=== PATIENT | female | born 1960 | race Caucasian/White ===

== ENCOUNTER → 2017-02-03 | Outpatient (CLI) | payer BC ==
[~2017-02-03] MED LIST: APAP/HYDROCODON1 TA9 PO; CLINDAMYCIN HC300 MG PO; CLONAZEPAM 1MG T1 MG PO; CYCLOBENZAPRINE10 M1 OR; DELTASONE5 MG PO; GABAPENTIN300 M1 PO; HYDROCODONE-APA1 TA1 PO; KLONOPIN1 M2 PO; LINZESS290 MCG PO; LISINOPRIL 5MG T5 MG PO; LORTAB 5/500 501 TAB PO; MEDROL 4MG. DOSE4 MG PO; MODERIBA PO; NAPROSYN 500MG500 MG PO; NORCO 325 MG-51 TAB PO; SOVALDI400 MG PO; VICODIN 7.5/501 EACH PO; ZANAFLEX4 MG NG; ZIAC 10 MG-6.251 TAB PO; ZITHROMAX Z-PA250 M2 PO
[2017-02-03 11:45] LABS: HEMOGLOBIN 14.5 g/dL (12.2-16.2); LYMPH # 2.2 K/mm3 (0.7-4.5); LYMPH % 37.6 % (10-50.0)
[2017-02-03 14:47] LABS: BUN 10 mg/dL (7-18); FREE THYROXIN INDEX 5.8 ug/dl (5.93-13.13)
[2017-02-03 14:56] LABS: GFR (ESTIMATED) 75 ML/MIN (59-)
== END ==
LOC: LAB 11:26
PROVIDERS: Internal Medicine Adolescent Medicine
DX: K74.60 Unspecified cirrhosis of liver (principal); R53.83 Other fatigue

== ENCOUNTER 2017-08-04 13:10 | Emergency (ER) | payer BC ==
[~2017-08-04] VITALS: Ht 177.8 cm; Wt 70.3 kg
[2017-08-04 13:36] LABS: URINE BILIRUBIN - DIPSTICK NEGATIVE (NEG); URINE BLOOD NEGATIVE (NEG)
[2017-08-04 13:37] LABS: HEMOGLOBIN 14.1 g/dL (12.2-16.2)
[2017-08-04 13:38] LABS: LYMPH # 2.8 K/mm3 (0.7-4.5); LYMPH % 39.4 % (10-50.0)
--- NOTE | 2017-08-04 13:42 | Emergency Room Report ---
History of Present Illness Time Seen by MD Wilks Comment The patient is brought in by in private vehicle for a reported overdose. He says that the patient awaken him 30 minutes prior to arrival and stated that she needed to go to the hospital, she had taken a bottle of pills. He does not know what she took, how much, or when. He says that she said she had done something stupid and needed to go to the hospital. He says that both he and the patient are on Ziac. She is also on Flexeril and Klonopin. She is on one other blood pressure medication. ALLERGIES Coded Allergies: Penicillins (NA-NAUSEA/VOMITING 11/26/15) Home Medications Active Scripts HYDROCODONE/ACETAMINOPHEN ([place] 5-325 Tablet) 1 TAB PO Q6HP PRN pain #10 TAB Prov: 06/23/16 Reported Medications LISINOPRIL (Lisinopril) 40 MG PO QHS #30 Bisoprolol Fumarate/Hydrochl (Ziac 10 Mg-6.25 Mg) 1 TAB PO QHS TIZANIDINE HCL (Zanaflex) 4 MG NG Q12 Linaclotide (Linzess 290MCG) 290 MCG PO DAILY Clonazepam (Klonopin) 1 MG PO PRN NERVES Gabapentin 300 MG PO TID #90 History Medical History General CAD? No Angina: No RI: No Hypertension? Yes Hyperlipidemia? No CHF? No DVT? No PE? No COPD? No Asthma? Yes Anemia? No GERD? No Gastric ulcers? No GI Bleed? No Hernia? No Thyroid Problems? No Hypothyroidism? No CVA? No Seizures? No Diabetes? No Insulin Dependent: No Insulin Pump: No Home FSBS? No Renal Insuffiency? No End Stage Renal Disease? No UTI? No Stones? No BPH? No GB Disease: Yes Nephritic Syndrome? No Asplenia? No Hepatitis? Yes Sickle Cell Disease? No Arthritis? No Migraines? No Cataracts? No Glaucoma? No MRSA? No HIV? No TB? No Anxiety? Yes Depression? No Cancer? Yes Site: CERVICAL More? Yes Additional hx: DDD, HX OF HEPATITIS/STATES CURED IBS Immunization Hx DT/Tetanus 1-4 YRS Flu Refused Pneumonia Refuses Surgical Hx Previous Surgery?Y PARTIAL Hysterect L KNEE GALLBLADDER Family History Family Hx Diabetes Yes CAD No Hypertension Yes Hyperlipidemia No Cancer Yes TB Yes Social History Smoking Hx Packs/day < 1 Pack Alcohol Alcohol: No Review of Systems All Other Systems Reviewed and Negative (unobtainable, unresponsive) Physical Exam Vital Signs Vital Signs Date Time Temp Pulse Resp B/P Pulse O2 O2 Flow FiO2 Ox Delivery Rate 08/04 1744 96.9 66 18 122/75 100 08/04 1742 96.9 08/04 1735 66 18 122/75 100 15 08/04 1655 96.0 08/04 1647 76 18 156/88 100 08/04 1613 78 20 151/87 100 15 08/04 1540 77 20 141/81 100 08/04 1512 75 20 134/80 100 08/04 1442 76 20 125/74 100 08/04 1425 75 20 117/74 100 08/04 1405 79 20 107/56 100 08/04 1400 15 08/04 1400 100 OXYGEN 08/04 1352 82 20 102/61 99 08/04 1341 85 20 112/72 100 08/04 1337 114 20 116/68 98 08/04 1326 122 20 91/51 99 08/04 1318 102 20 85/48 96 08/04 1310 99.1 107 4 85/45 90 15 General Appearance very bradypneic. Unresponsive to pain. Carotid pulses palpable. Eye Exam Comment Pupils constricted approximately 2-3 mm bilaterally. Ear, Nose, Throat normal ENT inspection Neck normal inspection Respiratory Status Yes: respiratory distress, trachea midline, chest symmetrical. Lung Sounds bilateral: normal breath sounds, lungs clear. Cardiovascular normal exam, regular rate/rhythm, no peripheral edema, no gallop, no JVD, no murmur, no rub, normal peripheral pulses Peripheral Pulses Pulses normal Yes Gastrointestinal soft, no organomegaly Extremities normal inspection Neurologic unresponsive to pain Mental status altered mental status Skin intact, normal color Medical Decision Making LABS/Meds/Orders Pt receiving controlled substance in ED? No Results/Orders Laboratory Tests 08/04/17 1405: ABG pH 7.40, ABG pCO2 (Temp Corrct 39.3, ABG pO2 (Temp Correct 195.7 H, ABG HCO3 23.6, ABG Total CO2 24.8, ABG O2 Sat (Calculated) 98.5, ABG Base Excess - 1.2, Ramesh Test PATIENT UNABLE, Vent Rate 16, Tidal Volume 500, POC PEEP 5, Pressure Support 8, Blood Gas Comments RIGHT BRACHIAL 08/04/17 1325: Opiates Screen NEGATIVE, Urine Methadone Screen NEGATIVE, Barbiturates NEGATIVE, Phencyclidine Screen NEGATIVE, Amphetamines Screen NEGATIVE, Benzodiazepines Screen NEGATIVE, Cocaine Screen NEGATIVE, Marijuana (THC) Screen NEGATIVE 08/04/17 132: Alcohols 0 08/04/17 132: Sodium 137, Potassium 2.7 *L, Chloride 101, Carbon Dioxide 29, BUN 10, Creatinine 0.9, Estimated Creat Clear 78, Estimated GFR (MDRD) 65, Glucose 174 H, Calcium 8.7, Total Bilirubin 0.5, AST 14 L, ALT 19, Alkaline Phosphatase 86, Total Protein 7.5, Albumin 3.6, Globulin 3.9 H, Albumin/Globulin Ratio 0.9 L, WBC 7.2, RBC 4.35, Hgb 14.1, Hct 41.3, MCV 94.9, RDW 13.6, Plt Count 208, MPV 8.4, Gran % 55.1, Gran # 4.0, Lymphocytes % 39.4, Monocytes % 5.5, Lymphocytes # 2.8, Monocytes # 0.4, PUBS MCHC 34.1, MCH 32.4 H, Salicylates 9.3, Acetaminophen 0 L, Urine Color YELLOW, Urine Appearance CLEAR, Urine pH 6.5, Ur Specific Marcus <= 1.005, Urine Protein NEGATIVE, Urine Ketones NEGATIVE, Urine Blood NEGATIVE, Urine Nitrate NEGATIVE, Urine Bilirubin NEGATIVE, Urine Urobilinogen 0.2, Ur Leukocyte Esterase NEGATIVE, Urine RBC NONE, Urine WBC NONE , Ur Squamous Epith Cells NONE, Urine Bacteria OCC, Urine Glucose NEGATIVE Current Medication Orders Sig/Matt Start time Last Medication Dose Route Stop Time Status Admin Potassium Chloride/ 100 ML .STK-MED ONE 08/04 1507 DC Water IV Potassium Chloride/ 100 ML ONCE ONE 08/04 1415 DC 08/04 Water IV 08/04 1614 1509 Charcoal 50 GM ONCE ONE 08/04 1400 DC 08/04 NG 08/04 1401 1345 Sodium Chloride 1,000 ML .Q1H1M 08/04 1400 DC 08/04 IV 08/04 1600 1330 Charcoal 0 .STK-MED ONE 08/04 1338 DC .ROUTE Sodium Chloride 10 ML PRN PRN 08/04 1330 DCD IV 08/05 1329 Etomidate 10 MG ONCE ONE 08/04 1325 DC 08/04 IV 08/04 1326 1404 Miscellaneous 0 .STK-MED ONE 08/04 1325 DC XX Succinylcholine 150 MG ONCE ONE 08/04 1325 DC 08/04 Chloride IV 08/04 1326 1404 Naloxone HCl 2 MG ONCE ONE 08/04 1315 DC 08/04 IV 08/04 1316 1318 Naloxone HCl 2 MG ONCE ONE 08/04 1310 DC 08/04 IV 08/04 1311 1315 Orders Procedure Date/time Status OXYGEN PER HOUR 08/04 1822 Complete COMP AIR HOURS 08/04 1822 Complete RT Sputum Specimen, Collected 08/04 1428 Active RT Pulse Oximetry, Provide 08/04 1426 Active RT O2 Installation/Change Set 08/04 1426 Active RT O2 Therapy, Monitor/[place] 08/04 1426 Active RT Intubation, Assist 08/04 1426 Active CULTURE, SPUTUM 08/04 1345 Active ALCOHOL 08/04 1344 Complete VENTILATOR INSTALLATION 08/04 1340 Complete SALICYLATE 08/04 1336 Complete Acetaminophen 08/04 1336 Complete NG TUBE INSERT 08/04 1331 Active URINARY CATHETER INSERT 08/04 1331 Active URINALYSIS/COMPLETE 08/04 1331 Complete ELECTROCARDIOGRAM REQUEST 08/04 1330 Active IV SALINE LOCK 08/04 1330 Active DRUG ABUSE SCREEN (TRIAGE) 08/04 1330 Complete CBC WITH AUTO DIFF 08/04 1330 Complete CHEM 12 PROFILE 08/04 1330 Complete 12 LEAD EKG-DOLLY (INITIAL) 08/04 UNK Active CM/EKG CM/EKG Comments EKG interpreted by Db Ramos MD: Rhythm: sinus tachycardia Rate: 115 [place]: normal Ectopy: none Conduction: normal ST Segment Changes: Inferior lateral depression T Wave Changes: none Q Waves: none No evidence of acute ischemia or injury Progress - The patient arrived completely unresponsive, barely breathing. Bag valve mask respirations administered while IV was being established. 2 doses of Narcan given intravenously without any effect. She was then intubated. 1:45 PM: Case was discussed with poison controlMiranda. The patient's daughter is going to her house to retrieve pill bottles. Pharmacy is [facility]. Case discussed with Dr. Zelaya. He prefers that the patient be transferred to [facility]. He confirms her med list includes Flexeril, Ziac, Klonopin, and lisinopril. She has been on Klonopin for years. She received a new prescription for 60 tablets on 07/19/17. 2:00 PM: Case discussed with Dr. Kauffman, plant and instrument engineer at [facility]. She accepts the patient, but there are no Intensive Care Unit beds currently. She says they will "make room for her" and call us back. 3:40 PM: Case discussed with Dr. Levin at [facility] intensive care unit. He accepts the patient and they have beds available. Procedures Intubation Progress EndotrachealIntubation Performed by: DB RAMOS Consent: The procedure was performed in an emergent situation. Patient identity confirmed: arm band Indications: airway protection respiratory failure Intubation method: video Patient status: paralyzed (RSI) Pretreatment medications: * Sedatives: Etomidate 10 mg Paralytic: Succinylcholine 150 mg Laryngoscope: Anguiano 3 Tube size: 7.5 mm Tube type: cuffed Number of attempts: 1 Cords visualized: yes Post-procedure assessment: chest rise and CO2 detector Breath sounds: equal and absent over the epigastrium Cuff inflated: yes ETT to teeth: 22 cm Tube secured with: ETT hernandez Chest x-ray interpreted by me. Chest x-ray findings: endotracheal tube in appropriate position Patient tolerance: Patient tolerated the procedure well with no immediate complications. Departure Departure Disposition DC/XFER from ER to [facility] Clinical Impression Primary Impression: Overdose Qualifiers: Encounter type: initial encounter Injury intent: intentional self- harm Qualified Code: T50.902A - Poisoning by unspecified drugs, medicaments and biological substances, intentional self-harm, initial encounter Condition STABLE ED Critical Care Critical Care Yes Time spent 30-74 min Vital system(s) involved: Respiratory Failure I was present at bedside for Coordinating pt's care, Interpreting EKGs/Strips , During my initial exam, Discussing pt condition, Examining radiographs at [id number]
[2017-08-04 14:08] LABS: AMPHETAMINES/METAMPHETAMINES NEGATIVE ng/mL (<1000)
--- NOTE | 2017-08-04 14:14 | RADIOLOGY REPORT PS360 ---
CHEST-PORTABLE HISTORY: Respiratory arrest RESP ARREST, POST INTUBATION ORDERING PHYSICIAN: Db Law MD PATIENT AGE: 57 years COMPARISON: None available FINDINGS: Endotracheal tube tip is in good position 3 cm above the devante. Nasogastric tube tip is not visible on the film but is below the diaphragm. The cardiovascular structures are unremarkable. There is a calcified granuloma in the right lower lobe. Lungs otherwise clear. IMPRESSION: 1. Tubes and lines in satisfactory position. 2. No acute cardiac or pulmonary findings
[2017-08-04 14:23] LABS: ARTERIAL ABE -1.2 MMOL/L (-2.4-+2.3); ARTERIAL PO2 195.7 MMHG (80-100); ARTERIAL TCO2 24.8 MMOL/L (23-27)
[2017-08-04 14:24] LABS: ALLEN'S TEST PATIENT UNABLE; OXYGEN 60; PRESSURE SUPPORT 8; VENT RATE 16
[2017-08-04 17:44] VITALS: BP 122/75
== END 2017-08-04 18:00 | disposition short-term general hospital (02) ==
LOC: ER 13:10
PROVIDERS: Emergency Medicine
DX: T50.902A Poisoning by unspecified drugs, medicaments and biological substances, intentional self-harm, initial encounter (principal); Z88.0 Allergy status to penicillin; Z79.899 Other long term (current) drug therapy; I10 Essential (primary) hypertension; J45.909 Unspecified asthma, uncomplicated; F41.9 Anxiety disorder, unspecified; Z85.41 Personal history of malignant neoplasm of cervix uteri
CPT/HCPCS: J0330; J2310